=== PATIENT | male | born 1935 | race Caucasian/White ===

== ENCOUNTER → 2017-10-17 | Outpatient (CLI) | payer MEDICARE, OTHER ==
[~2017-10-17] MED LIST: ASPIRIN EC81 M1 PO; FISH OIL 1,0001 EAC5 PO; GLUCOSAMINE &1 EAC1 PO; KEFLEX500 MG PO; NAPROSYN500 MG PO; NOHOMEMEDICATIONS; NORCO 5-325 TA1 EACH PO; PRAVACHOL 20 MG20 M1 PO; RED YEAST RICE600 MG PO; ULTRAM 50MG TAB50 MG PO; VITAMIN D1000 UNI1 PO
[2017-10-17 14:02] LABS: CREATININE 0.9 mg/dL (0.6-1.3)
== END ==
LOC: M.LAB 12:57 → M.CT 15:00
PROVIDERS: Surgery Vascular Surgery
DX: I71.4 Abdominal aortic aneurysm, without rupture (principal)

== ENCOUNTER → 2018-04-15 | Outpatient (CLI) | payer MEDICARE, OTHER ==
[2018-04-15 12:41] LABS: CREATININE 0.9 mg/dL (0.6-1.3)
== END ==
LOC: M.LAB 12:17 → M.CT 13:30
PROVIDERS: Surgery Vascular Surgery
DX: I71.4 Abdominal aortic aneurysm, without rupture (principal); K57.30 Diverticulosis of large intestine without perforation or abscess without bleeding; M47.816 Spondylosis without myelopathy or radiculopathy, lumbar region; E78.00 Pure hypercholesterolemia, unspecified

== ENCOUNTER 2019-06-22 15:00 | Emergency (ER) | payer MEDICARE, OTHER ==
[~2019-06-22] VITALS: Ht 182.9 cm; Wt 170.1 kg
[2019-06-22 15:46] LABS: ABSOLUTE BASOPHILS 0.1 thou/uL (0.0-0.2); ABSOLUTE EOSINOPHILS 0.4 thou/uL (0.0-0.7); ABSOLUTE LYMPHOCYTES 1.7 thou/uL (0.8-5.3); ABSOLUTE MONOCYTES 0.9 thou/uL (0.0-1.2); ABSOLUTE NEUTROPHILS 4.6 thou/uL (1.6-8.1); BASOPHILS 0.8 %; EOSINOPHILS 4.8 %; HEMATOCRIT 43.7 % (42.0-52.0); HEMOGLOBIN 14.8 gm/dL (14.0-18.0); LYMPHOCYTES 22.1 %; MCH 32.4 pg (26.0-34.0); MCHC 33.8 g/dL (28.0-37.0); MCV 95.9 fL (80.0-100.0); MONOCYTES 11.8 %; MPV 8.7 fl. (7.2-11.1); NUCLEATED RBCS 0 /100WBC; PLATELET COUNT* 173 thou/uL (150-400); POLYS 60.5 %; RBC 4.55 mil/uL (4.50-6.00); RDW-CV 14.1 % (10.5-14.5); WBC 7.6 thou/uL (4.0-11.0)
[2019-06-22 15:55] LABS: CALCIUM 8.3 mg/dL (8.5-10.1); CREATININE 0.9 mg/dL (0.6-1.3); POTASSIUM 4.4 mmol/L (3.5-5.1)
[2019-06-22 16:02] LABS: APTT 26.9 Seconds (25.0-31.3); PROTIME 10.2 Seconds (9.20-11.50)
[2019-06-22 16:05] LABS: ALBUMIN 3.5 g/dL (3.4-5.0); MAGNESIUM 1.9 mg/dL (1.8-2.4); TOTAL BILIRUBIN 1.4 mg/dL (<0.1-1.0)
[2019-06-22] MEDS ORDERED: NAPROSYN500 MG PO (16:41)
[2019-06-22] MEDS ORDERED: ZANAFLEX4 MG PO (16:41)
[2019-06-22] MEDS ORDERED: TRAMADOL 50 MG50 MG PO (16:41)
[2019-06-22 16:57] VITALS: BP 138/91
--- NOTE | 2019-06-23 09:44 | EKG ---
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 : 1935 Requested By: Eveline Guillen Order Number: [id number] MD: Mark Alonso Measurements Intervals Fox Rate: 89 P: -6 DE: 196 QRS: 60 QRSD: 118 T: 38 QT: 399 QTc: 486 Interpretive Statements Sinus rhythm Ventricular premature complex Nonspecific intraventricular conduction delay Compared to ECG 06/17/2013 21:08:04 Ventricular premature complex(es) now present Electronically Signed On 06-23-2019 9:44:23 [employer] by Mark Alonso [email or web address] <ELECTRONICALLY SIGNED> By: Mark Alonso MD, [facility] 06/23/19 0944 [id number] Mark Alonso MD, FACC /EPI
== END 2019-06-22 16:57 | disposition home or self-care (01) ==
LOC: M.ERS 15:00
PROVIDERS: Nurse Practitioner Family
DX: R60.9 Edema, unspecified (principal); R25.2 Cramp and spasm; E66.9 Obesity, unspecified; Z68.43 Body mass index [BMI] 50.0-59.9, adult; Z86.73 Personal history of transient ischemic attack (TIA), and cerebral infarction without residual deficits; Z96.641 Presence of right artificial hip joint